=== PATIENT | male | born 1995 | race Caucasian/White ===

== ENCOUNTER 2020-06-25 02:18 | Emergency (ER) | payer MEDICAID ==
[2020-06-25] MEDS ORDERED: Albuterol 8 GM Inhaler INH ONE (02:54)
--- NOTE | 2020-06-25 02:58 | EDM.PDOC ---
ED HPI GENERAL MEDICAL PROBLEM - General Chief Complaint: Asthma Stated Complaint: SOB Time Seen by Provider: 06/25/20 02:52 Source of Information: Reports: Patient, RN Notes Reviewed History Limitations: Reports: No Limitations - History of Present Illness INITIAL COMMENTS - FREE TEXT/NARRATIVE: 24-year-old gentleman presents emergency department today feeling short of breath, he forgot his inhaler at the [facility] earlier tonight he is heading back to the [facility]. He is requesting an albuterol inhaler, he is able to speak in full sentences without difficulty - Related Data Allergies Allergy/AdvReac Type Severity Reaction Status Date / Time No Known Allergies Allergy Verified 06/25/20 02:41 Home Meds: Home Meds *Inhaler 1 puff IH BID 06/25/20 [History] Albuterol [Ventolin HFA] 2 puff IH ASDIRECTED 06/25/20 [History] Past Medical History HEENT History: Reports: Allergic Rhinitis Respiratory History: Reports: Asthma Musculoskeletal History: Reports: Fracture Neurological History: Reports: Concussion, Other (See Below) Other Neuro History: L1, L2 fractures Psychiatric History: Reports: Depression - Past Surgical History Musculoskeletal Surgical History: Reports: Other (See Below) Other Musculoskeletal Surgeries/Procedures:: reattaached left thumb Social & Family History - Tobacco Use Smoking Status *Q: Never Smoker ED ROS GENERAL - Review of Systems Review Of Systems: See Below Constitutional: Reports: No Symptoms Respiratory: Reports: Shortness of Breath ED EXAM, GENERAL - Physical Exam Exam: See Below Exam Limited By: No Limitations General Appearance: Alert, WD/WN, No Apparent Distress Respiratory/Chest: No Respiratory Distress, Lungs Clear, Normal Breath Sounds, No Accessory Muscle Use, Chest Non-Tender Cardiovascular: Regular Rate, Rhythm, No Murmur Course - Vital Signs Last Recorded V/S: Last Vital Signs Temp 97.5 F 06/25/20 02:45 Pulse 89 06/25/20 02:45 Resp 18 06/25/20 02:45 BP 160/110 H 06/25/20 02:45 Pulse Ox 98 06/25/20 02:45 - Orders/Labs/Meds Orders: Active Orders 24 hr Category Date Time Status RT Post Treatment Assessment [RC] Click to Edit Care 06/25/20 02:55 Ordered Albuterol [Ventolin HFA] Med 06/25/20 02:54 Once 1 gm INH ONETIME ONE Medication Orders Albuterol (Ventolin Hfa) 1 gm INH ONETIME ONE Stop: 06/25/20 02:55 Meds: Medications Generic Name Dose Route Start Last Admin Trade Name Sandra PRN Reason Stop Dose Admin Albuterol 1 gm 06/25/20 02:54 Ventolin Hfa INH 06/25/20 02:55 ONETIME ONE Departure - Departure Time of Disposition: 02:58 Disposition: Home, Self-Care 01 Condition: Good Clinical Impression: Medication refill - Discharge Information Instructions: Asthma, Adult, [id number] Referrals: PCP,None [Primary Care Provider] - Additional Instructions: Follow-up with primary care as needed upon return home call return to the emergency department worsening of symptoms Sepsis Event Note (ED) - Evaluation Sepsis Screening Result: No Definite Risk - Focused Exam Vital Signs: Vital Signs Temp Pulse Resp BP Pulse Ox 06/25/20 02:45 97.5 F 89 18 160/110 H 98 06/25/20 02:44 97.5 F 89 18 160/110 H 98 - My Orders Last 24 Hours: My Active Orders 06/25/20 02:54 Albuterol [Ventolin HFA] 1 gm INH ONETIME ONE 06/25/20 02:55 RT Post Treatment Assessment [RC] Click to Edit - Assessment/Plan Last 24 Hours: My Active Orders 06/25/20 02:54 Albuterol [Ventolin HFA] 1 gm INH ONETIME ONE 06/25/20 02:55 RT Post Treatment Assessment [RC] Click to Edit Plan: Assessment Acuity = acute Site and laterality = medication refill Etiology = lost his medication at the [facility] Manifestations = none Location of injury = Home Lab values = none Plan 1 albuterol inhaler was provided follow-up primary care upon return home if needed This note was dictated using Desk voice recognition software please call with any questions on syntax or grammar.
== END 2020-06-25 03:11 | disposition home or self-care (01) ==
LOC: JP.ED 02:18
DX: Z76.0 Encounter for issue of repeat prescription (principal); J45.909 Unspecified asthma, uncomplicated
CPT/HCPCS: 94640; 99282; A9270